=== PATIENT | female | born 1985 | race Caucasian/White ===

== ENCOUNTER 2016-04-19 11:50 | Inpatient (IN) | payer MEDICAID ==
[~2016-04-19] VITALS: Ht 144.8 cm; Wt 77.8 kg
[2016-04-19 12:12] VITALS: Ht 144.8 cm; Wt 77.8 kg
[2016-04-19] MEDS ORDERED: PRENAT PO (12:14)
--- NOTE | 2016-04-19 12:28 | TRIAGE ---
OB Triage Datetime Report Generated by CPN: 04/19/2016 12:28 Datetime: 04/19/2016 12:23 Stage of : OB Triage Datetime: 04/19/2016 12:05 Stage of : OB Triage Assessment Type: Triage Maternal Assessment Level of Consciousness: Fully Conscious DTR's/Clonus: DTRs 2+; No Clonus Headache: Denies Blurred Vision: No Respiratory Effort: Unlabored; Regular Rhythm; Equal Expansion Breath Sounds, Left: Clear and Equal Breath Sounds, Right: Clear and Equal Nausea/Vomiting: Denies RUQ Epigastric Pain: Denies Lower Extremities Edema: None Degree: None Upper Extremities Edema: None Degree: None Facial Edema: None Temperature Route: Axillary Fall Risk Assessment History of Falling: (0) No Secondary Diagnosis: (0) No Ambulatory Aid: (0) Bedrest/Nurse Assist IV Therapy: (0) No Gait: (0) Normal/Bedrest/Immobile Mental Status: (0) Oriented to Own Ability Fall Score: 0 Fall Risk Score Definition: No Risk: No action required Labor Evaluation Monitor Mode: External Pattern: Normal: <= 5 Contractions in 10 Minutes Resting Tone [place]: Relaxed Heart Rate FHR Baseline Rate: 145 Monitor Mode: External US Variability: Moderate 6-25 bpm Decelerations: None Category: Category I Pain Assessment Pain Scale: 10 Pain Presence: Intermittent Pain Type: Cramping; Contraction Pain Location: Abdomen Pain Goal: 3 Pain Relief Measures: Comfort Measures Vaginal Exam Dilatation (cms): 4.5 Effacement (%): 100 Station: -2 Exam By: s marlon Membrane Status: Intact Datetime: 04/19/2016 12:04 Time of Arrival: 04/19/2016 11:45 EGA: 38.6 Arrived By: Ambulatory Arrived From: Home Chief Complaint: C/o uc's and bleeding today, denies leaking of fluid Movement: Present Contractions: Regular Contractions: 7 Rupture of Membranes: Denies Vaginal Bleeding: Scant Vaginal Discharge: Denies Recent Sexual Intercouse: Denies Abdominal Trauma: Not Applicable Patient Complaints: Cramping Time Provider Notified: 04/19/2016 12:23 Provider Notified: YUKI Initial Plan: monitor, ve
[2016-04-19] MEDS ORDERED: CARBOPROST 250 MCG INJ IM PRN ×2 (12:30→18:30)
[2016-04-19] MEDS ORDERED: LACTATED RINGER'S 1,000 ML IV PRN (12:30)
[2016-04-19] MEDS ORDERED: BUTORPHANOL 2 MG INJ IV PRN ×2 (12:30)
[2016-04-19] MEDS ORDERED: OXYTOCIN 30 UNITS/LR 500 ML IV SCH ×3 (12:30→19:00)
[2016-04-19] MEDS ORDERED: OXYTOCIN 30 UNITS/LR 500 ML IV PRN ×2 (12:30→18:30)
[2016-04-19] MEDS ORDERED: METHYLERGONOVINE 0.2 MG INJ IM PRN ×2 (12:30→18:30)
[2016-04-19] MEDS ORDERED: MISOPROSTOL 200 MCG TAB PR PRN ×2 (12:30→18:30)
[2016-04-19] MEDS ORDERED: AMPICILLIN 2 GM/NS (PMX) 100 ML IV ONE (12:30)
[2016-04-19] MEDS ORDERED: LIDOCAINE 1% (MPF) 30 ML INJ INJ PRN (12:30)
[2016-04-19 13:08] LABS: BASOPHILS % 0.3 % (0.0-2.0); EOSINOPHILS # 0.1 10^3/ul (0.0-0.5); EOSINOPHILS % 0.7 % (0.0-7.0); HEMATOCRIT 33.2 % (37.0-47.0); HEMOGLOBIN 10.5 g/dl (12.0-16.0); LYMPHOCYTES # 1.8 10^3/ul (0.8-2.9); LYMPHOCYTES % 18.2 % (15.0-51.0); MEAN CORPUSCULAR HGB CONC 31.5 g/dl (32.0-37.0); MEAN CORPUSCULAR VOLUME 66.7 fl (82.0-101.0); MEAN PLATELET VOLUME 9.7 fl (7.4-10.4); MONOCYTE # 0.8 10^3/ul (0.3-0.9); MONOCYTES % 7.6 % (0.0-11.0); NEUTROPHIL # 7.2 10^3/ul (1.6-7.5); NEUTROPHILS % 73.2 % (39.0-77.0); PLATELET COUNT 298 10^3/UL (140-440); RED BLOOD COUNT 4.98 10^6/ul (4.20-5.40); RED CELL DISTRIBUTION WIDTH 19.5 % (11.5-14.5); UNCORRECTED WBC 9.9 10^3/ul (4.8-10.8); WHITE BLOOD COUNT 9.9 10^3/ul (4.8-10.8)
[2016-04-19 13:14] LABS: CONDITION 1; LH ANALYZER COMMENTS 1
[2016-04-19] MEDS: LACTATED RINGER'S 1,000 ML IV SCH ×2 (13:24→16:09)
[2016-04-19 13:28] LABS: INR 0.98
[2016-04-19 13:29] LABS: PARTIAL THROMBOPLASTIN TIME 29.5 Sec (25.0-35.0)
[2016-04-19] MEDS ORDERED: FENTAnyl 2MCG/ML-ROPIV 0.2% 100 ML ONE (14:15)
[2016-04-19] MEDS ORDERED: DIPHENHYDRAMINE 50 MG INJ IV PRN (15:30)
[2016-04-19] MEDS ORDERED: ONDANSETRON 4 MG INJ IV PRN (15:30)
[2016-04-19] MEDS ORDERED: FENTAnyl 2MCG/ML-ROPIV 0.2% 100 ML BAG EPI SCH (15:30)
[2016-04-19] MEDS ORDERED: NALOXONE (0.4 MG/ML) INJ IV PRN (15:30)
[2016-04-19] MEDS ORDERED: AMPICILLIN 1 GM/NS (PMX) 50 ML IV SCH (16:30)
[2016-04-19] MEDS ORDERED: WITCH HAZEL/GLYCERIN PAD PR PRN (18:30)
[2016-04-19] MEDS ORDERED: SENNA/DOCUSATE NA (8.6MG/50MG) TAB PO PRN (18:30)
[2016-04-19] MEDS ORDERED: LANOLIN 7 GM TUBE TOP PRN (18:30)
[2016-04-19] MEDS ORDERED: BENZOCAINE 20% 56 ML SPRAY TOP PRN (18:30)
--- NOTE | 2016-04-19 18:30 | LDN ---
Date/Time of Note Date/Time of Note DATE: 04/19/16 TIME: 18:28 Delivery Summary Placenta Delivered: Spontaneously Meconium: Light Perineum intact?: No Perineal laceration: 1 Perineal laceration repair: 1st degree perineal laceration repair with 3-0 chromic Anesthesia type: Epidural Estimated blood loss: 200 Sponge & Needle done & correct: Yes All needle counts correct: Yes Any foreign bodies felt in the: No Problems: Infant Delivery Information Sex Sex: male Apgars 1 Minute: 9 5 Minute: 9 Suctioning Nose & mouth suctioned at herman: No Delee suction performed: No Umbilical Cord Umbilical cord with: 3 Vessels Cord presentations: no nuchal cord Cord Blood was obtained: Yes ARSH MIRZA MD Apr 19, 2016 18:30
--- NOTE | 2016-04-19 18:41 | PREOPHP ---
DATE OF ADMISSION: 04/19/2016 HISTORY OF PRESENT ILLNESS: Ms. Ila Licona is a 31-year-old 4, para 3, EDC 04/27/2016 intra uterine at 38 weeks and 6 days gestational age, presented to triage complaining of contrac tions since early this morning. She was found to be 4 to 5 cm dilated at the time of admission. Sh e denies any vaginal bleeding. Her course took place with Dr. Jose De Jesus Hammond. PAST MEDICAL HISTORY: None. MEDICATIONS: vitamins. PAST SURGICAL HISTORY: None. OBSTETRIC HISTORY: x3 vaginal deliveries. GYNECOLOGIC HISTORY: Regular 3 to 4 days. Denies any sexually transmitted diseases. Sexually acti ve with 1 partner. SOCIAL HISTORY: Denies any smoking, drugs or alcohol. FAMILY HISTORY: None. PHYSICAL EXAMINATION: HEENT: Within normal. LUNGS: CTA bilateral. CARDIOVASCULAR: S1, S2, regular rhythm. ABDOMEN: Gravid, nontender. Negative CVA bilateral. EXTREMITIES: Negative edema. No calf tenderness. PELVIC: Vaginal exam 6 to 7 cm, 90% effaced, -1 station. Artificial rupture of membrane with posit chaim light meconium noted. heart tracing category 1, toco regular contractions. ASSESSMENT: Intrauterine at term in labor. PLAN: Expectant vaginal delivery. Dictated By: ARSH CARMICHAEL/SHAUNA Conf#: [id number] DID#: [id number]
[2016-04-19] MEDS: OXYTOCIN 30 UNITS/LR 500 ML IV SCH (18:57)
[2016-04-19] MEDS: OXYCODONE/ASPIRIN (4.88/325) TAB PO PRN (20:34)
[2016-04-19 20:45] VITALS: BP 107/57; PULSE 86; RESP 18
[2016-04-19 21:15] VITALS: BP 110/55; PULSE 83; RESP 18
[2016-04-19] MEDS: SENNA/DOCUSATE NA (8.6MG/50MG) TAB PO SCH (21:34)
[2016-04-20] VITALS: BP 103/84; PULSE 84; RESP 18
[2016-04-20] MEDS: IBUPROFEN 600 MG TAB PO SCH ×5 (00:07→23:39)
[2016-04-20] MEDS: OXYTOCIN 30 UNITS/LR 500 ML IV SCH (00:50)
[2016-04-20] MEDS: LACTATED RINGER'S 1,000 ML IV* SCH ×4 (02:25→18:25)
[2016-04-20] MEDS: OXYCODONE/ASPIRIN (4.88/325) TAB PO PRN ×3 (03:45→16:47)
[2016-04-20 04:00] VITALS: BP 110/56; PULSE 79; RESP 18
[2016-04-20 08:15] VITALS: BP 92/57; PULSE 82; RESP 17
[2016-04-20 08:41] LABS: BASOPHILS % 0.3 % (0.0-2.0); EOSINOPHILS # 0.1 10^3/ul (0.0-0.5); EOSINOPHILS % 0.8 % (0.0-7.0); HEMATOCRIT 28.5 % (37.0-47.0); HEMOGLOBIN 8.5 g/dl (12.0-16.0); LYMPHOCYTES # 2.7 10^3/ul (0.8-2.9); LYMPHOCYTES % 23.2 % (15.0-51.0); MEAN CORPUSCULAR HEMOGLOBIN 20.8 pg (29.0-33.0); MEAN CORPUSCULAR HGB CONC 29.8 g/dl (32.0-37.0); MEAN CORPUSCULAR VOLUME 69.7 fl (82.0-101.0); MONOCYTE # 0.9 10^3/ul (0.3-0.9); MONOCYTES % 7.7 % (0.0-11.0); NEUTROPHILS % 67.5 % (39.0-77.0); PLATELET COUNT 267 10^3/UL (140-415); RED BLOOD COUNT 4.09 10^6/ul (4.20-5.40); RED CELL DISTRIBUTION WIDTH 19.2 % (11.5-14.5); WHITE BLOOD COUNT 11.8 10^3/ul (4.8-10.8)
[2016-04-20] MEDS: SENNA/DOCUSATE NA (8.6MG/50MG) TAB PO SCH ×2 (09:30→21:18)
[2016-04-20 12:00] VITALS: BP 91/51; PULSE 84; RESP 19
[2016-04-20 16:00] VITALS: BP 88/49; PULSE 83; RESP 17
--- NOTE | 2016-04-20 19:19 | PD.PPDC ---
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
[2016-04-20 20:00] VITALS: BP 119/59; PULSE 85; RESP 18
[2016-04-21] MEDS: LACTATED RINGER'S 1,000 ML IV* SCH (02:25)
[2016-04-21 04:00] VITALS: BP 96/56; PULSE 71; RESP 18
[2016-04-21] MEDS: OXYCODONE/ASPIRIN (4.88/325) TAB PO PRN (05:02)
[2016-04-21] MEDS: IBUPROFEN 600 MG TAB PO SCH ×2 (05:39→11:52)
--- NOTE | 2016-04-21 06:41 | DS ---
DATE OF ADMISSION: 04/19/2016 DATE OF DISCHARGE: 04/21/2016 PRIMARY DIAGNOSIS: A 31-year-old, 4, para 3 Intrauterine at term, in labor. PROCEDURE: Normal spontaneous vaginal delivery. CONDITION ON DISCHARGE: Stable. ACTIVITY: None per vagina, no heavy lifting x6 weeks. DIET: Regular. MEDICATIONS ON DISCHARGE: 1. Motrin. 2. Iron. 3. Colace. DISCHARGE SUMMARY: Ms. Sandi Licona is a 31-year-old 4, para 4, status post normal spontaneo us vaginal delivery on 04/20/2016. She had a viable male, Apgars 9 and 9 respectively at one and fi ve minutes with a first-degree perineal laceration repair. She had an uneventful day 1, she was discharged on day 2. She will follow up in the office in 2 to 3 weeks. Dictated By: ARSH CARMICHAEL/SHAUNA Conf#: [id number] DID#: [id number]
[2016-04-21 08:20] VITALS: BP 103/64; PULSE 69; RESP 18
[2016-04-21] MEDS: SENNA/DOCUSATE NA (8.6MG/50MG) TAB PO SCH (09:03)
== END 2016-04-21 12:40 | disposition home or self-care (01) | DRG 775 ==
LOC: OBT 11:50 → L-D 11:50 → OBT 12:15 → L-D 12:15 → PP1 20:42
PROVIDERS: ADMIT Obstetrics & Gynecology; ATTEND Obstetrics & Gynecology
PROC: 10E0XZZ Delivery of Products of Conception, External Approach (ICD-10-PCS; principal; 2016-04-19)
PROC: 10907ZC Drainage of Amniotic Fluid, Therapeutic from Products of Conception, Via Natural or Artificial Opening (ICD-10-PCS; 2016-04-19)
PROC: 0HQ9XZZ Repair Perineum Skin, External Approach (ICD-10-PCS; 2016-04-19)
DX: O70.0 First degree perineal laceration during delivery (principal); Z37.0 Single live birth; Z3A.38 38 weeks gestation of pregnancy
CPT/HCPCS: 62319; 85025; 85610; 85730; 86592; 86900; 86901; 99464; G0463; J0290; J2590; J3010; J7120